=== PATIENT | female | born 1945 ===

== ENCOUNTER 2020-10-02 17:46 | Emergency (ER) | payer MEDICARE ==
[~2020-10-02] VITALS: Ht 157.5 cm; Wt 82.4 kg
[2020-10-02 18:03] VITALS: BP 143/80
== END 2020-10-02 23:59 | disposition left against medical advice (07) ==
LOC: ER 17:47
DX: S00.83XA Contusion of other part of head, initial encounter (principal); Z53.21 Procedure and treatment not carried out due to patient leaving prior to being seen by health care provider; X58.XXXA Exposure to other specified factors, initial encounter; Y93.89 Activity, other specified; Y92.89 Other specified places as the place of occurrence of the external cause; Y99.8 Other external cause status